=== PATIENT | male | born 1960 | race Caucasian/White ===

== ENCOUNTER 2017-05-16 11:11 | Emergency (ER) | payer OTHER ==
[~2017-05-16] VITALS: Ht 167.6 cm; Wt 68.2 kg
[2017-05-16 11:19] VITALS: BP 141/77; PULSE 59; RESP 16; O2SAT 97
--- NOTE | 2017-05-16 11:25 | ED.REPORT ---
HPI-Chest Pain 40 and Over Date of Service May 16, 2017 ED Provider: Alfonso Bhatt DO Pt is a 56 y/o male with a history of GERD who presents to the ED sent from c /o chest pain onset 2 hours ago. He points to his epigastrium for his pain, but states his pain radiated down his arm. He reports that his symptoms lasted about an hour, and feels relieved now. Pt states that he was given aspirin at , but felt relief with Tums that he took 30 minutes ago. Additional symptoms include SOB, epigastric pain, mild nausea, clammy hands, and numbness/tingling in arms since resolved. He denies vomiting, diarrhea, fever, chills, cough, lower leg edema, or any other symptoms. Nursing Notes Stated Complaint: HEART ISSUES Chief Complaint: Chest Pain-Non Cardiac Nature Nursing Notes Reviewed: Yes Allergies: Coded Allergies: morphine (Verified Allergy, Intermediate, NAUSEA/VOMITTING, 05/16/17) General Time Seen by MD: 11:22 Chief Complaint Chest pain Hx Obtained From: Patient Arrived By: Walk-in Sudden in Onset?: Yes Onset Occurred: 1 - 4 hours ago Symptom Duration: Intermittent Location: : Epigastric Quality: Itching Radiation: : Arm left Severity: Current: No pain currently Severity: Maximum: Moderate Recent Healthcare: No recent doctor visit, No recent hospitalization Similar Sx Previous: No Past Medical History Past Medical History GERD Esophageal stenosis Family History Father had stroke Smoking History Never Smoker Social History Alcohol Use: "Social" Drug Use: Denies drug use Other Social History: Good social support, Ambulatory Status Independent Review of Systems Constitutional: Denies: Chills, Fever Respiratory: Reports: Shortness of breath, Denies: Non-productive cough, Prod cough, bloody, Prod cough, clear Cardiovascular: Reports: Chest pain GI: Reports: Abdominal pain (epigastric), Nausea (mild), Denies: Diarrhea, Vomiting Musculoskeletal: Denies: Extremity swelling Neurologic: Reports: Numbness (in arm since resolved) Complete sys rev & neg: except as marked. Physical Exam Initial Vital Signs Vital Signs (First) Date Time Temp Pulse Resp B/P Pulse Ox O2 Delivery O2 Flow Rate FiO2 05/16/17 11:19 37.0 59 16 141/77 97 Room Air Initial VS: Reviewed Head / Eyes: Atraumatic, Normocephalic Neck: Supple, Full range of motion Extremities: Vascular intact, Neuro intact, No swelling, No tenderness Skin: Warm, Dry, No cyanosis Neurologic: Alert, Oriented, Nonfocal Psychiatric: Mood/affect normal, Behavior normal, Normal thought content General/Constitutional: Awake, Alert Respiratory / Chest: Atraumatic, Breath sounds NL, Breath sounds = bilat, No respiratory distress Cardiovascular: Heart rate NL, Regular rhythm, Heart sounds NL Abdomen: Soft, Non-tender Interpretation & Diagnostics Lab Results Interpretation Result Diagram: 05/16/17 1200 05/16/17 1200 Test 05/16/17 12:00 05/16/17 13:55 White Blood Count 5.1th/mm3 (3.8-10.1) Red Blood Count 4.97mil/mm3 (4.40-5.80) Hemoglobin 16.3g/dL (13.8-17.2) Hematocrit 46.4% (41.0-50.0) Mean Corpuscular Volume 93.4fL (81-100) Mean Corpuscular Hemoglobin 32.8pg (27.0-35.0) Mean Corpuscular Hemoglobin Concent 35.1% (32.0-37.0) Red Cell Distribution Width 12.7% (12.3-15.4) Platelet Count 288bil/L (150-400) Neutrophils (%) (Auto) 69.0% (40-74) Lymphocytes (%) (Auto) 20.4% (14-46) Monocytes (%) (Auto) 8.0% (4-12) Eosinophils (%) (Auto) 1.4% (0-5) Basophils (%) (Auto) 1.0% (0-3) D-Dimer < 0.50mg/L FEU (<0.50) Sodium Level 138mEq/L (134-144) Potassium Level 4.0mEq/L (3.5-5.2) Chloride Level 101mEq/L (97-108) Carbon Dioxide Level 22mmol/L (18-29) Blood Urea Nitrogen 14mg/dL (6-24) Creatinine 0.95mg/dL (0.76-1.27) Estimat Glomerular Filtration Rate 88mL/min (>59) Glucose Level 110mg/dL (60-99) Calcium Level 9.5mg/dL (8.5-10.1) Magnesium Level 1.9mg/dL (1.6-2.6) Total Bilirubin 0.7mg/dL (0.0-1.2) Aspartate Amino Transf (AST/SGOT) 16U/L (0-50) Alanine Aminotransferase (ALT/SGPT) 18U/L (0-44) Alkaline Phosphatase 63U/L (25-150) Total Protein 7.1g/dL (6.4-8.4) Albumin 4.2g/dL (3.4-5.0) Troponin T < 0.010ug/L (0.0-0.011) ECG Interpretation ECG Interpretation: Sinus rhythm, rate 60 Time: 11:40 Interpreted by: ED physician ECG Interpretation: Sinus rhythm, rate 56 Time: 13:55 Interpreted by: ED physician X-Ray Chest Interpretation Chest Xray Interpretation: IMPRESSION: 1. No acute cardiopulmonary disease. Dictated by: Fernando Stewart M.D. on 05/16/2017 at 12:20 Approved by: Fernando Stewart M.D. on 05/16/2017 at 12:20 View: Portable, 1 view Interpretation / Wet Read by: Interpret - Radiologist Re-Eval/Medical Decision Med Decision/Clinical Course Single self resolved episode of chest pain, serial troponins negative, EKGs without acute ischemic changes. Patient is feeling better. Patient wishes to be discharged, recommend daily aspirin and close outpatient follow-up. Return and follow-up precautions given. Source of Hx: Old records Time of Eval: 13:18 Patient Status: Condition improved Re-Evaluation/Progress Note: Patient rechecked. Discussed lab, EKG, and chest x-ray results. Repeat troponin, and will discharge if negative. Time of Eval: 14:30 Patient Status: Condition improved Re-Evaluation/Progress Note: Patient rechecked. Discussed plan for discharge. Patient understands and agrees with plan. F/U instructions and RTER warnings given. All questions addressed at this time. Counseled Regarding: Diagnosis, Lab results, Need for follow-up, When/why to return to ED Discharge & Departure Primary Impression: Epigastric abdominal pain Disposition: Home Discharge Condition All VS Reviewed: Yes Condition: Stable Patient Instructions: Angina (ED) Additional Instructions: Your workup in the ER is reassuring. Begin taking a baby aspirin daily. Additionally begin using Pepcid at night. Eat a bland diet and avoid heavy physical exertion. Follow-up with the primary care doctor who can help perform a full physical and schedule an outpatient stress test. Return to the ER as needed for recurrent chest pain, or other concerns. Referrals: John Bustillos MD (PCP/Family) Scribe Attestation Portions of this note were transcribed by Rupinder Tompkins. I, Dr. Bhatt, personally performed the history, physical exam and medical decision-making; I reviewed and confirmed the accuracy of the information in the transcribed note. Signed by Jayla Giraldo, 05/16/17. copies to: John Bustillos MD, Timothy S DO May 16, 2017 11:25 Rupinder Tompkins May 16, 2017 11:51
[2017-05-16 12:09] LABS: EOSINOPHILS % (AUTO) 1.4 % (0-5); Mean Corpuscular Hemoglobin 32.8 pg (27.0-35.0); Mean Corpuscular Volume 93.4 fL (81-100); Platelet Count 288 bil/L (150-400)
--- NOTE | 2017-05-16 12:21 | DRSVH ---
PROCEDURE: X-RAY CHEST ONE VIEW, PORTABLE ([id number]) INDICATIONS: CHEST PAIN TECHNIQUE: One view of the chest was acquired. COMPARISON: None. FINDINGS: Surgical changes and devices: None. Lungs and pleura: No pleural effusions or pneumothorax. Lungs are clear. Mediastinum: Mediastinal contours appear normal. Heart size is normal. Bones and chest wall: No suspicious bony lesions. Overlying soft tissues appear unremarkable. IMPRESSION: 1. No acute cardiopulmonary disease. Dictated by: Fernando Stewart M.D. on 05/16/2017 at 12:20 Approved by: Fernando Stewart M.D. on 05/16/2017 at 12:20
[2017-05-16 12:40] LABS: TROPONIN T 0.01 ug/L (0.0-0.011)
[2017-05-16 12:51] LABS: Magnesium 1.9 mg/dL (1.6-2.6)
[2017-05-16] MEDS ORDERED: Famotidine 10 mg/mL 2 mL Inj IVPUSH ONE (13:35)
[2017-05-16 13:58] VITALS: BP 136/81; PULSE 58; RESP 16; O2SAT 97
[2017-05-16 15:13] VITALS: BP 136/81; PULSE 58; RESP 16; O2SAT 97
== END 2017-05-16 15:14 | disposition home or self-care (01) ==
LOC: SED 11:11
DX: R10.13 Epigastric pain (principal); R06.02 Shortness of breath; R23.1 Pallor; R11.0 Nausea; K21.9 Gastro-esophageal reflux disease without esophagitis; Z88.5 Allergy status to narcotic agent
CPT/HCPCS: 36415; 71010; 80053; 82948; 83735; 84484; 85025; 85378; 93005; 96374; 99285; J3490